=== PATIENT | female | born 1990 | race African-American/Black ===

== ENCOUNTER 2018-09-05 18:06 | Emergency (ER) | payer SELFPAY ==
[2018-09-05 18:58] LABS: #Basophils 0.1 thou/uL (0.0-0.2); #Lymphocytes 3.1 thou/uL (1.20-3.40); #Monocytes 0.8 thou/uL (0.11-0.59); #Neutrophils 7.1 thou/uL (1.40-6.50); %Basophils 0.8 % (0.0-1.0); %Eosinophils 0.4 % (0.0-10.0); %Lymphocytes 27.6 % (21.0-51.0); %Monocytes 7.4 % (0.0-10.0); %Neutrophils 63.8 % (42.0-75.0); Hemoglobin 12.5 g/dL (12.0-16.0); Mean Corpuscular HGB CONC 32.7 g/dL (32.0-36.0); Mean Corpuscular Hemoglobin 28.2 pg (27.0-31.0); Mean Corpuscular Volume 86.2 fL (78.0-98.0); Mean Platelet Volume 6.9 fL (7.4-10.4); Platelet Count 415 thou/uL (130-400); RBC Distribution Width 12.1 % (11.5-14.5); Red Blood Cell (RBC) Count 4.43 mill/uL (4.20-5.40); White Blood Cell (WBC) Count 11.1 thou/uL (4.8-10.8)
[2018-09-05 19:36] LABS: Bilirubin Negative (Negative); Blood, Urine Negative (Negative); Clarity CLEAR (Clear); Glucose, Urine (Dipstick) Negative (Negative); Leukocyte Negative (Negative); Nitrite Negative (Negative); Protein, Urine (Dipstick) Negative (Neg-Trace); Specific Gravity, Urine 1.028 (1.002-1.036); Urobilinogen 0.2 mg/dL (0.2-1.0)
--- NOTE | 2018-09-05 20:42 | ULT ---
FPelvic ultrasound: Endovaginal Ariza pelvis performed. INDICATIONS: Pelvic pain with vaginal leading. Positive test. Endometrial stripe is mildly prominent. There is a tiny fluid collection within the endometrial cavit y which may represent a small gestational sac. Measurement would indicate a 5 week 2 day gestational age. No evidence of yolk sac or pole. Both ovaries show follicular cysts. Color Doppler spectrum analysis demonstrates blood flow to both o varies. Small amount of free fluid in the cul-de-sac. IMPRESSION: 1. Evidence of tiny gestational sac within the endometrial cavity. Recommend continued follow-up seri al hCG levels.
== END 2018-09-05 21:24 | disposition home or self-care (01) ==
LOC: ERS 18:06
DX: O20.0 Threatened abortion (principal); Z87.891 Personal history of nicotine dependence; Z3A.01 Less than 8 weeks gestation of pregnancy
CPT/HCPCS: 36415; 76856; 81003; 84702; 85025; 86900; 86901

== ENCOUNTER 2019-04-22 17:48 | Day surgery (SDC) | payer OTHER ==
[2019-04-22 18:14] VITALS: BMI 34.7
--- NOTE | 2019-04-22 18:26 | PDOC.LDHP ---
Addendum entered and electronically signed by Rabia Orozco MD 04/23/19 05:27 : SVE: 08/02/2 --> Patient only 25% not 75% effaced Original Note: Labor and Delivery H&P Chief complaint: other (vaginal pressure) HPI: 28YO @ 37.2 WGA w/ an JOSH of 05/11/19 presenting for increased vaginal pressure over the course of today. Reports she had 1 episode of light vaginal spotting 2-3 days ago and lost her mucus plug yesterday morning around 0950. Still having some mucoid d/c but denies any additional spotting, LOF, abnormal discharge, itching or vaginal pain. Endorses regular movement. Has been feeling intermittent contractions over the last month that only last a few seconds at a time. Has not felt any contractions since her arrival. Current gestational age (weeks): 37 (37.2) Due date: 05/11/19 Grav: 2 Para: 1 OB History Details: pregnany #1: Term Current complications: none Abnormal US findings: No Past Medical History: none Current medications: pre-cem vitamins Previous surgical history: none Allergies/Adverse Reactions: Allergies Allergy/AdvReac Type Severity Reaction Status Date / Time No Known Allergies Allergy Verified 04/22/19 18:19 Social history: none - Physical Exam Vital signs reviewed and normal: yes General: NAD, resting Heart: RRR Lungs: nonlabored breathing Abdomen: NTTP Extremeties: normal range of motion FHT: category 1, variability present Arnegard contractions every: no regular contractions noted - Vaginal Exam cm dilated: 2 Effacement: 75% Station: -2 - OB Labs 1 hour GCT: negative GBS: positive - Assessment 28YO @ 37.2 WGA presenting for increased vaginal pressure who does not appear to be in active labor. - Plan -: Term IUP @ 37.2 WGA: - Patient's cervical dilation unchanged from SVE in office on 04/19/19. Only dilated to 2cm. - No contractions noted on NST since arrival. FHT reassuring with accels and variability presents with baseline in 150s. - Maternal VS WNLs. Dispo: Will discharge the patient home with labor precautions & instructions to keep her scheduled appt with Dr. Dumont for 04/27/19. Addendum - Attending - Attending Attestation Date/Time: 04/23/19 0649 I personally evaluated the patient and discussed the management with Dr. Orozco. I agree with the History, Examination, Assessment and Plan documented above.
== END 2019-04-22 18:49 | disposition home health service (06) ==
LOC: L&D/OP 17:48
PROVIDERS: ATTEND Obstetrics & Gynecology
DX: O99.89 Other specified diseases and conditions complicating pregnancy, childbirth and the puerperium (principal); N89.8 Other specified noninflammatory disorders of vagina; Z3A.37 37 weeks gestation of pregnancy
CPT/HCPCS: 99282

== ENCOUNTER 2019-05-01 12:50 | Inpatient (IN) | payer OTHER ==
[2019-05-01 13:32] VITALS: BMI 35.8
[2019-05-01] MEDS ORDERED: FLU VACC QS2019-20(6MOS UP)/PF 60 MCG/0.5 ML SYRINGE IM ONE (13:45)
[2019-05-01] MEDS ORDERED: hydrALAZINE 20 MG/ML VIAL SLOW IVP PRN ×4 (14:03→22:29)
[2019-05-01] MEDS ORDERED: Butorphanol Tartrate 1 MG/ML VIAL SLOW IVP PRN (14:08)
[2019-05-01] MEDS ORDERED: Ondansetron PF 4 MG/2 ML Vial IVP PRN ×2 (14:08→16:12)
[2019-05-01] MEDS ORDERED: Promethazine HCl 25 MG/ML VIAL IM PRN ×3 (14:08→22:29)
[2019-05-01] MEDS ORDERED: NS / Oxytocin 40 units/1000ml 1,000 ML IV PRN (14:10)
[2019-05-01] MEDS ORDERED: Lidocaine 1% (PF) 30 ML VIAL SC PRN (14:10)
--- NOTE | 2019-05-01 14:11 | PDOC.FPRHP ---
- History of Present Illness History of Present Illness: 28 yo @38.4wks presents with contractions since this morning. Denies LOF, VB , discharge, dysuria. Feels the baby move. - Allergies/Adverse Reactions Allergies Allergy/AdvReac Type Severity Reaction Status Date / Time No Known Allergies Allergy Verified 05/01/19 13:32 - Home Medications Medication Instructions Recorded Confirmed Type Vit No.129/Iron/Folic 1 tab .ROUTE DAILY 05/01/19 05/01/19 History [ One Daily Tablet] - History PMHx:none PSHx: none FHx:none Social:none - Review of Systems General: denies: fever/chills, weight/appetite/sleep changes ENT: denies: nasal congestion, rhinorrhea Respiratory: denies: cough, congestion Cardiovascular: denies: chest pain, palpitation Gastrointestinal: denies: nausea, vomiting, diarrhea Genitourinary: denies: dysuria Skin: denies: rashes, lesions Musculoskeletal: denies: pain, tenderness Neurological: denies: numbness, syncope Psychological: denies: anxiety, depression - Physical Exam Constitutional: NAD, awake, alert and oriented HEENT: normocephalic and atraumatic Heart: RRR, normal S1/S2 Lungs: CTAB, no respiratory distress Abdomen: soft, non-tender Skin: no rash/lesions, good turgor Heme/Lymphatic: no unusual bruising or bleeding, no purpura Psychiatric: normal mood and affect, good judgment and insight Additional comment: Category 1 strip 5/80/-2 FMR H&P: Results - Labs Result Diagrams: 05/01/19 15:15 FMR H&P: A/P - Problem List (1) Third trimester Current Visit: Yes Status: Acute Code(s): Z34.93 - ENCNTR FOR SUPRVSN OF NORMAL PREG, UNSP, THIRD TRIMESTER (2) Active labor Current Visit: Yes Status: Acute Code(s): WOC3317 - - Plan 28 yo @38.4wks admitted for active labor. -Will admit to L&D. Consult anesthesia. Cervical checks q2h. FMR H&P: Upper Level - Plan Date/Time: 05/01/19 1411 I, [], have evaluated this patient and agree with findings/plan as outlined by sourcing internship resident. Pertinent changes/additions are listed here. Addendum - Attending - Attending Attestation Date/Time: 05/01/191840 I personally evaluated the patient and discussed the management with Dr. Soni. at term in labor, +GBS. Pt. of Dr. Dumont. Will admit and start Pen G. I agree with the History, Examination, Assessment and Plan documented above.
[2019-05-01] MEDS ORDERED: Penicillin G Potassium 5 MILL.UNITS in Sodium Chloride 0.9% 100 ML IVPB SCH (14:15)
[2019-05-01] MEDS: Lactated Ringer's 1,000 ML IV SCH ×2 (15:13→16:45)
[2019-05-01] MEDS ORDERED: Fentanyl 4 mcg/Bup 0.1% Cadd 100 ML ONE (15:19)
[2019-05-01 15:25] LABS: Hemoglobin 13.5 g/dL (12.0-16.0); Mean Corpuscular HGB CONC 33.4 g/dL (32.0-36.0); Mean Corpuscular Hemoglobin 28.5 pg (27.0-31.0); Mean Corpuscular Volume 85.3 fL (78.0-98.0); Mean Platelet Volume 7.3 fL (7.4-10.4); Platelet Count 320 thou/uL (130-400); RBC Distribution Width 12.7 % (11.5-14.5); Red Blood Cell (RBC) Count 4.75 mill/uL (4.20-5.40); White Blood Cell (WBC) Count 15.4 thou/uL (4.8-10.8)
[2019-05-01] MEDS ORDERED: Fentanyl 100 MCG/2 ML VIAL ONE (15:41)
[2019-05-01] MEDS ORDERED: Bupivacaine 0.5% 10 ML VIAL ONE (15:42)
[2019-05-01 16:02] LABS: Syphilis Antibody Nonreactive (Nonreactive); Syphilis Antibody Index 0.05 S/CO (<1.00 Non-Reactive)
[2019-05-01 16:03] LABS: HBSAg Index 0.16 S/CO (0-0.99); Hep B Surf Ag Non-Reactive S/CO (NonReactive)
[2019-05-01] MEDS: Penicillin G 2.5 MILL.units 2.5 MILL.UNITS in Premix Bag 1 BAG IVPB SCH ×2 (16:08→19:00)
[2019-05-01] MEDS ORDERED: Fentanyl 100 MCG/2 ML VIAL I-THECAL ONE (16:11)
[2019-05-01] MEDS ORDERED: ePHEDrine/0.9% NaCl/PF SYRINGE 50 mg/10 ml SLOW IVP PRN (16:12)
[2019-05-01] MEDS ORDERED: Acetaminophen 325 MG TAB PO PRN (16:12)
[2019-05-01] MEDS ORDERED: diphenhydrAMINE 50 MG/ML VIAL IVP PRN (16:12)
[2019-05-01] MEDS ORDERED: Lactated Ringer's 500 ML IV PRN (16:12)
[2019-05-01] MEDS ORDERED: Naloxone HCl 0.4 mg/ml Vial IVP PRN ×2 (16:12)
[2019-05-01] MEDS ORDERED: Bupivacaine 0.25% 10 ML VIAL EPIDURAL SCH (16:15)
[2019-05-01] MEDS ORDERED: Fentanyl 4 mcg/Bupivacaine 0.1% Cassette 100 ML EPIDURAL SCH (16:15)
[2019-05-01] MEDS ORDERED: Communication Order-Pharmacy FS SCH (16:15)
--- NOTE | 2019-05-01 17:55 | PDOC.EVN ---
Event Note - Event Note Event Note: Comfortable with epidural. Fhts stable, no decels. UC pattern not well documented. SVE 7 cm/80/0, -1 vtx. AROM forebag- clear fluid seen. Plan: Place IUPC, augment if needed.
[2019-05-01] MEDS ORDERED: Lanolin Ointment 7 GM TUBE TOP PRN (22:29)
[2019-05-01] MEDS ORDERED: Milk Of Magnesia 30 ML UDCUP PO PRN (22:29)
[2019-05-01] MEDS ORDERED: HYDROcodone/Acetaminophen 5/325 mg Tablet PO PRN (22:29)
[2019-05-01] MEDS ORDERED: Bisacodyl 10 MG SUPP PR PRN (22:29)
[2019-05-01] MEDS ORDERED: Preparation H Ointment 57 gram tube RC PRN (22:29)
[2019-05-01] MEDS ORDERED: Zolpidem Tartrate 5 MG TAB PO PRN (22:29)
[2019-05-01] MEDS ORDERED: Benzocaine-Menthol 82.5 ML CAN TOP PRN (22:29)
[2019-05-01] MEDS ORDERED: NS / Oxytocin 40 units/1000ml 1,000 ML IV SCH (22:29)
[2019-05-01] MEDS ORDERED: diphenhydrAMINE 25 MG CAP PO PRN (22:29)
[2019-05-01] MEDS ORDERED: Docusate Calcium (SURFAK) 240 MG CAP PO SCH (22:45)
[2019-05-01] MEDS ORDERED: Ibuprofen 800 MG TAB PO SCH (22:45)
[2019-05-02] MEDS: Ibuprofen 800 MG TAB PO SCH ×3 (05:02→21:30)
--- NOTE | 2019-05-02 07:58 | PDOC.PP ---
Post Progress Note Post Day #: 0-1 PO intake tolerated: yes Flatus: yes Ambulation: yes Vital Signs (12 hours) Temp Pulse Resp BP Pulse Ox 05/02/19 05:00 98.2 F 99 18 115/64 05/02/19 00:50 97.9 F 89 18 132/60 98 05/01/19 23:55 98.6 F 85 18 130/66 98 05/01/19 22:50 98.6 F 99 18 148/65 H 98 Weight Weight 196 lb Result Diagrams: 05/01/19 15:15 Additional Labs: Post Labs Blood Type O POSITIVE 05/01/19 15:15 Hep Bs Antigen Non-Reactive S/CO (NonReactive) 05/01/19 15:15 - Assessment/Plan Post day 0-1. Doing well. Discharge 05/03 anticipated.
[2019-05-02] MEDS ORDERED: Adacel (T-DAP) 0.5 ML SYRINGE IM ONE (09:00)
[2019-05-02] MEDS: Prenatal Vitamin 1 TAB PO SCH (09:16)
[2019-05-02] MEDS: Docusate Calcium (SURFAK) 240 MG CAP PO SCH ×2 (09:16→21:30)
[2019-05-02] MEDS: HYDROcodone/Acetaminophen 5/325 mg Tablet PO PRN (18:25)
[2019-05-03] MEDS: Ibuprofen 800 MG TAB PO SCH ×2 (05:14→12:50)
[2019-05-03] MEDS: Prenatal Vitamin 1 TAB PO SCH (08:15)
[2019-05-03] MEDS: Docusate Calcium (SURFAK) 240 MG CAP PO SCH (08:16)
[2019-05-03] MEDS: HYDROcodone/Acetaminophen 5/325 mg Tablet PO PRN (08:17)
[2019-05-03 08:40] VITALS: BP 98/55; TEMP 99.1
--- NOTE | 2019-05-03 09:26 | PDOC.PP ---
Post Progress Note Post Day #: 2 Subjective: Pt doing well on PPD2. Minimal lochia. Pain well controlled with ibuprofen. She is bottle feeding only and baby is take bottle well. She is urinating normally. No fever, chest pain or SOB. PO intake tolerated: yes Flatus: yes Ambulation: yes Vital Signs (12 hours) Temp Pulse Resp BP Pulse Ox 05/03/19 08:39 99.1 F 87 20 98/55 L 94 L Weight Weight 196 lb - Physical Examination General: NAD Respiratory: non-labored breathing Abdominal: + bowel sounds, lochia, no distention Fundus firm & at: 2 cm below umbilicus Extremities: negative homans (B) Skin: no rash Neurological: no gross focal deficits Psychiatric: A&Ox3, normal affect Result Diagrams: 05/01/19 15:15 Additional Labs: Post Labs Blood Type O POSITIVE 05/01/19 15:15 Hep Bs Antigen Non-Reactive S/CO (NonReactive) 05/01/19 15:15 (1) Normal vaginal delivery Code(s): O80 - ENCOUNTER FOR FULL-TERM UNCOMPLICATED DELIVERY Status: Acute - Assessment/Plan Pt doing well on PPD2. Pt will continue OTC ibuprofen 600 mg every 6-8 hours for pain/cramping. She will follow up with our office in 6 weeks for post visit. Discharge planning discussed with patient.
== END 2019-05-03 13:00 | disposition home or self-care (01) | DRG 807 ==
LOC: L&D/OP 12:50 → L&D 14:44 → 3SW 23:17
PROVIDERS: ADMIT Obstetrics & Gynecology; ATTEND Obstetrics & Gynecology
PROC: 10E0XZZ Delivery of Products of Conception, External Approach (ICD-10-PCS; principal; 2019-05-01)
PROC: 0KQM0ZZ Repair Perineum Muscle, Open Approach (ICD-10-PCS; 2019-05-01)
PROC: 10907ZC Drainage of Amniotic Fluid, Therapeutic from Products of Conception, Via Natural or Artificial Opening (ICD-10-PCS; 2019-05-01)
PROC: 10H07YZ Insertion of Other Device into Products of Conception, Via Natural or Artificial Opening (ICD-10-PCS; 2019-05-01)
DX: O99.824 Streptococcus B carrier state complicating childbirth (principal); Z37.0 Single live birth; Z3A.38 38 weeks gestation of pregnancy; O70.1 Second degree perineal laceration during delivery
CPT/HCPCS: 36415; 51702; 85027; 86780; 86850; 86900; 86901; 87340; 99285; J2540; J3010; J3490

== ENCOUNTER 2019-11-13 14:20 | Emergency (ER) | payer OTHER ==
[2019-11-14 14:05] LABS: SARS-CoV-2 MS2 Positive; SARS-CoV-2 N Gene Negative; SARS-CoV-2 S Gene Negative; SARS-CoV-2 orf1ab Negative
== END 2019-11-13 15:07 | disposition home or self-care (01) ==
LOC: ERS 14:20
DX: R50.9 Fever, unspecified (principal); R51 Headache; Z20.828 Contact with and (suspected) exposure to other viral communicable diseases; Z87.891 Personal history of nicotine dependence
CPT/HCPCS: 87635; 99283; U0003

== ENCOUNTER 2020-10-02 18:47 | Emergency (ER) | payer BC, OTHER ==
[2020-10-02] MEDS ORDERED: Magnesium 2 GM/50 ML BAG (IN WATER) ONE (21:18)
[2020-10-02] MEDS ORDERED: Acetaminophen 500 MG TAB ONE (21:18)
[2020-10-02] MEDS ORDERED: diphenhydrAMINE 50 MG/ML VIAL ONE (21:19)
[2020-10-02] MEDS ORDERED: Metoclopramide HCl 10 MG/2 ML VIAL ONE (21:19)
[2020-10-02] MEDS ORDERED: Ketorolac Tromethamine 30 MG/ML VIAL ONE (21:19)
== END 2020-10-02 23:12 | disposition home or self-care (01) ==
LOC: ERS 18:47
DX: B34.9 Viral infection, unspecified (principal); F17.290 Nicotine dependence, other tobacco product, uncomplicated
CPT/HCPCS: 87081; 87430; 96365; 96366; 96368; 96375; J1200; J1885; J2765; J3475

== ENCOUNTER 2025-02-17 19:02 | Emergency (ER) | payer SELFPAY | END 2025-02-17 20:00 | disposition home or self-care (01) | LOC: ERS 19:02 | DX: J06.9 Acute upper respiratory infection, unspecified (principal); F17.290 Nicotine dependence, other tobacco product, uncomplicated | CPT/HCPCS: 87428; 99283 ==